=== PATIENT | female | born 1980 | race Caucasian/White ===

== ENCOUNTER 2017-05-31 15:13 | Emergency (ER) | payer BC, MEDICARE ==
[2017-05-31 15:46] LABS: #Eosinphils 0.1 thou/uL (0.0-0.7); #Lymphocytes 1.9 thou/uL (1.20-3.40); #Monocytes 0.5 thou/uL (0.11-0.59); #Neutrophils 5.5 thou/uL (1.40-6.50); %Basophils 0.3 % (0.0-1.0); %Eosinophils 0.8 % (0.0-10.0); %Lymphocytes 23.2 % (21.0-51.0); %Monocytes 6.7 % (0.0-10.0); Mean Corpuscular HGB CONC 33.8 g/dL (32.0-36.0); Mean Corpuscular Hemoglobin 28.9 pg (27.0-31.0); Mean Corpuscular Volume 85.6 fl (81.0-99.0); Mean Platelet Volume 6.6 fL (7.4-10.4); Platelet Count 266 thou/uL (130-400); RBC Distribution Width 12.1 % (11.5-14.5); Red Blood Cell (RBC) Count 4.48 mill/uL (4.20-5.40)
[2017-05-31 15:48] LABS: Bilirubin Negative (Negative); Blood, Urine Negative (Negative); Clarity CLEAR (Clear); Glucose, Urine (Dipstick) Negative (Negative); Leukocyte Negative (Negative); Nitrite Negative (Negative); Protein, Urine (Dipstick) Negative (Neg-Trace); Specific Gravity, Urine 1.009 (1.002-1.036); Urobilinogen 0.2 mg/dL (0.2-1.0)
--- NOTE | 2017-05-31 15:55 | RAD ---
RADIOGRAPH CHEST 1 VIEW: 05/31/17 HISTORY: 37-year-old female with pressure type of chest pain. FINDINGS: The visualized lung abreu are clear. The cardiomediastinal silhouette and hilar shadows are normal. The lateral costophrenic angles are sharp. The osseous structures appear normal. There is no pneu mothorax. IMPRESSION: Negative. jn [] POS: [facility]
[2017-05-31 16:08] LABS: ALT (SGPT) 12 U/L (8-55); AST (SGOT) 15 U/L (5-34); Albumin 4.6 g/dL (3.5-5.0); Alkaline Phosphatase 77 U/L (40-150); Anion Gap 13 mmol/L (10-20); BUN (Urea Nitrogen) 11 mg/dL (7.0-18.7); Bilirubin, Total 0.6 mg/dL (0.2-1.2); CK (CPK) 88 U/L (29-168); Calc. Creatinine Clearance 0 mL/min (70-130); Calcium 9.4 mg/dL (7.8-10.44); Carbon Dioxide 24 mmol/L (22-29); Chloride 104 mmol/L (98-107); Estimated GFR-MDRD 70; Globulin 2.8 g/dL (2.4-3.5); Glucose 81 mg/dL (70-105); Lipase 12 U/L (8-78); Potassium 3.4 mmol/L (3.5-5.1); Protein, Total 7.4 g/dL (6.0-8.3); Sodium 138 mmol/L (136-145)
[2017-05-31] MEDS ORDERED: Ketorolac Tromethamine 30 MG/ML VIAL ONE (16:11)
[2017-05-31] MEDS ORDERED: diphenhydrAMINE 50 MG/ML VIAL ONE (16:11)
[2017-05-31 16:12] LABS: Troponin I Less than 0.010 ng/mL (< 0.028)
--- NOTE | 2017-05-31 16:20 | CT ---
CT BRAIN NONCONTRAST: 05/31/17 HISTORY: 37-year-old female with headache, lightheadedness, and near syncope. FINDINGS: There is no midline shift or any other mass effect. There is no evidence of acute intracranial hemor rhage, large cortical infarct, obstructive hydrocephalus, or extraaxial fluid collection. The calvar ium is intact. There is opacification and expansion of one of the left ethmoidal air cells measuring approximately 1.3 x 0.8 cm. The rest of the visualized portions of the bilateral ethmoid air cells, f rontal sinuses, and sphenoid sinus, are clear. No gross opacification of the bilateral tympanomastoid cavities. IMPRESSION: 1. No acute intracranial findings. 2. 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 jn [] POS: [facility]
[2017-05-31] MEDS ORDERED: Acetaminophen 500 MG TAB ONE (17:19)
[2017-05-31 18:32] LABS: Troponin I Less than 0.010 ng/mL (< 0.028)
== END 2017-05-31 18:41 | disposition home or self-care (01) ==
LOC: ERS 15:13
DX: F41.9 Anxiety disorder, unspecified (principal); R51 Headache; F43.10 Post-traumatic stress disorder, unspecified; F32.9 Major depressive disorder, single episode, unspecified; Z79.899 Other long term (current) drug therapy
CPT/HCPCS: 36415; 70450; 71045; 80053; 81003; 82550; 82553; 83690; 84443; 84484; 85025; 93005; 96361; 96365; 96375; J1200; J1885; J2765; J7050

== ENCOUNTER 2018-11-12 09:24 | Outpatient (CLI) | payer OTHER ==
[2018-11-12] MEDS ORDERED: Gadobenate Dimeglumine 529 MG/1 ML (20ML VIAL) ONE (09:55)
[2018-11-12] MEDS ORDERED: EPINEPHrine 1 MG/ML AMP ONE (09:55)
[2018-11-12] MEDS ORDERED: Lidocaine 1% PF 10 ML AMP ONE (09:55)
[2018-11-12] MEDS ORDERED: Iopamidol 300 61% 100 ML VIAL FS ONE (09:55)
--- NOTE | 2018-11-12 11:51 | RAD ---
Exam: Right hip arthrogram: HISTORY: Strain of right hip, right hip pain, history of 2 prior right acetabular labral surgeries FINDINGS: Following informed consent the right hip was prepped and draped in usual sterile fashion. Local anest hetic was performed with 1% Xylocaine. A 22-gauge spinal needle was introduced into the anterior lateral hip joint space and a mixture of iodinated and gadolinium contrast media injected. Spot films confirm intra-articular location. Somewhat prominent lateral projection of contrast probably related to prior surgery. Patient tolerated the procedure well and will be moved to MRI for postarthrogram MRI to follow. IMPRESSION: Successful right hip arthrogram.
--- NOTE | 2018-11-12 12:55 | MRI ---
Exam: Right hip MRI post arthrogram contrast: HISTORY: Strain of right hip, right hip pain, history of 2 prior surgeries with acetabular labral repair. FINDINGS: Exam done following right hip arthrogram. Multiple internal fixation anchors are noted within the acetabulum. There is a focal outpouching of t he lateral hip capsule. Probably related to prior surgery. No evidence for associated extravasation. Abnormal signal associated with the anterior labrum evidence for labral tear. No abnor mal marrow signal. Visualized muscles and tendons appear within normal limits. IMPRESSION: Evidence for anterior labral tear. Outpouching of the lateral right hip capsule probably related to prior surgery. Multiple internal fixation anchors within the acetabulum.
== END 2018-11-12 09:25 | disposition home or self-care (01) ==
LOC: RAD 09:24
PROVIDERS: ATTEND Family Medicine
DX: S76.011D Strain of muscle, fascia and tendon of right hip, subsequent encounter (principal); S73.101A Unspecified sprain of right hip, initial encounter
CPT/HCPCS: 27093; A9577; J0171; J2001; Q9967

== ENCOUNTER 2020-11-15 12:23 | Outpatient (CLI) | payer OTHER | END 2020-11-15 12:24 | disposition home or self-care (01) | LOC: BICMRI 12:23 | PROVIDERS: ATTEND Nurse Practitioner Acute Care | DX: R51.9 Headache, unspecified (principal) | CPT/HCPCS: 70553 ==

== ENCOUNTER 2020-11-15 13:40 | Observation (INO) | payer OTHER ==
[2020-11-15] MEDS ORDERED: EPINEPHrine 1 MG/ML VIAL ONE ×2 (13:47→17:57)
[2020-11-15] MEDS ORDERED: diphenhydrAMINE 50 MG/ML VIAL ONE ×2 (13:49→20:55)
[2020-11-15] MEDS ORDERED: methylPREDNISolone Sod Succ/PF 125 MG/2 ML VIAL ONE (13:49)
[2020-11-15] MEDS ORDERED: Famotidine/PF 20 mg/2ml Vial ONE (13:49)
[2020-11-15 14:06] LABS: #Lymphocytes 1.5 thou/uL (1.20-3.40); #Monocytes 0.5 thou/uL (0.11-0.59); #Neutrophils 12.2 thou/uL (1.40-6.50); %Eosinophils 0.1 % (0.0-10.0); %Lymphocytes 10.8 % (21.0-51.0); %Monocytes 3.6 % (0.0-10.0); %Neutrophils 85.5 % (42.0-75.0); Hemoglobin 14.1 g/dL (12.0-16.0); Mean Corpuscular HGB CONC 32.9 g/dL (32.0-36.0); Mean Corpuscular Hemoglobin 28.9 pg (27.0-31.0); Mean Corpuscular Volume 87.6 fL (78.0-98.0); Mean Platelet Volume 7.7 fL (7.4-10.4); Platelet Count 354 thou/uL (130-400); RBC Distribution Width 11.7 % (11.5-14.5); Red Blood Cell (RBC) Count 4.87 mill/uL (4.20-5.40); White Blood Cell (WBC) Count 14.2 thou/uL (4.8-10.8)
[2020-11-15 14:25] LABS: ALT (SGPT) 15 U/L (8-55); AST (SGOT) 16 U/L (5-34); Alkaline Phosphatase 95 U/L (40-110); Anion Gap 12 mmol/L (10-20); BUN (Urea Nitrogen) 6 mg/dL (7.0-18.7); Bilirubin, Total 0.5 mg/dL (0.2-1.2); Calc. Creatinine Clearance 0 mL/min (70-130); Calcium 10.4 mg/dL (7.8-10.44); Carbon Dioxide 24 mmol/L (22-29); Chloride 102 mmol/L (98-107); Globulin 3.9 g/dL (2.4-3.5); Glucose 126 mg/dL (70-105); Potassium 3.2 mmol/L (3.5-5.1); Protein, Total 8.9 g/dL (6.0-8.3); Sodium 135 mmol/L (136-145)
[2020-11-15] MEDS ORDERED: diphenhydrAMINE 25 MG CAP ONE (16:47)
[2020-11-15] MEDS ORDERED: Acetaminophen 325 MG TAB PO PRN (19:19)
[2020-11-15] MEDS ORDERED: Ondansetron PF 4 MG/2 ML Vial IVP PRN (19:19)
[2020-11-15] MEDS ORDERED: Loratadine 10 MG TAB PO PRN (19:31)
[2020-11-15] MEDS ORDERED: Potassium Chloride 20 MEQ TAB PO SCH (19:45)
[2020-11-15] MEDS ORDERED: diphenhydrAMINE 50 MG/ML VIAL IVP SCH (21:00)
[2020-11-15] MEDS ORDERED: Famotidine/PF 20 mg/2ml Vial SLOW IVP SCH (21:00)
[2020-11-15] MEDS ORDERED: ALPRAZolam 0.25 MG TAB ONE ×2 (22:38)
[2020-11-15] MEDS: Modafinil 100 MG TAB PO SCH (22:53)
[2020-11-15 23:05] LABS: Anion Gap 14 mmol/L (10-20); BUN (Urea Nitrogen) 6 mg/dL (7.0-18.7); Calc. Creatinine Clearance 0 mL/min (70-130); Calcium 9.3 mg/dL (7.8-10.44); Carbon Dioxide 24 mmol/L (22-29); Chloride 105 mmol/L (98-107); Glucose 129 mg/dL (70-105); Potassium 3.5 mmol/L (3.5-5.1); Sodium 139 mmol/L (136-145)
[2020-11-16 02:50] VITALS: TEMP 97.6
[2020-11-16 05:15] LABS: #Lymphocytes 1.1 thou/uL (1.20-3.40); #Monocytes 0.6 thou/uL (0.11-0.59); #Neutrophils 11.1 thou/uL (1.40-6.50); %Basophils 0.1 % (0.0-1.0); %Eosinophils 0.1 % (0.0-10.0); %Lymphocytes 8.8 % (21.0-51.0); %Neutrophils 86.1 % (42.0-75.0); Hemoglobin 11.8 g/dL (12.0-16.0); Mean Corpuscular HGB CONC 32.5 g/dL (32.0-36.0); Mean Corpuscular Hemoglobin 28.8 pg (27.0-31.0); Mean Corpuscular Volume 88.5 fL (78.0-98.0); Platelet Count 281 thou/uL (130-400); RBC Distribution Width 11.9 % (11.5-14.5); White Blood Cell (WBC) Count 12.9 thou/uL (4.8-10.8)
[2020-11-16 05:26] LABS: Anion Gap 11 mmol/L (10-20); BUN (Urea Nitrogen) 11 mg/dL (7.0-18.7); Calc. Creatinine Clearance 0 mL/min (70-130); Calcium 9.4 mg/dL (7.8-10.44); Carbon Dioxide 25 mmol/L (22-29); Chloride 107 mmol/L (98-107); Glucose 124 mg/dL (70-105); Potassium 3.8 mmol/L (3.5-5.1); Sodium 139 mmol/L (136-145)
[2020-11-16] MEDS: Modafinil 100 MG TAB PO SCH (06:12)
[2020-11-16 07:25] VITALS: BP 123/86
[2020-11-16] MEDS ORDERED: Famotidine/PF 20 mg/2ml Vial SLOW IVP SCH (09:00)
[2020-11-16] MEDS ORDERED: buPROPion 75 MG TAB PO SCH (09:00)
[2020-11-16] MEDS ORDERED: ALPRAZolam 0.5 MG TAB PO PRN (09:00)
== END 2020-11-16 09:16 | disposition home or self-care (01) ==
LOC: ERS 13:40 → ERHOLD 17:58 → INTOOBSV 17:58
PROVIDERS: ADMIT Internal Medicine; ATTEND Internal Medicine
DX: T88.6XXA Anaphylactic reaction due to adverse effect of correct drug or medicament properly administered, initial encounter (principal); T50.8X5A Adverse effect of diagnostic agents, initial encounter; J02.9 Acute pharyngitis, unspecified; D72.829 Elevated white blood cell count, unspecified; E87.6 Hypokalemia; J30.2 Other seasonal allergic rhinitis; Z79.899 Other long term (current) drug therapy; Z88.5 Allergy status to narcotic agent; Z88.6 Allergy status to analgesic agent; Z88.8 Allergy status to other drugs, medicaments and biological substances; Z91.041 Radiographic dye allergy status; Y84.2 Radiological procedure and radiotherapy as the cause of abnormal reaction of the patient, or of later complication, without mention of misadventure at the time of the procedure
CPT/HCPCS: 36415; 80048; 80053; 85025; 93005; 96372; 96374; 96375; 96376; G0378; J0171; J1200; J2930; Q0163; S0028